=== PATIENT | female | born 1985 | race Asian ===

== ENCOUNTER 2019-05-14 18:53 | Outpatient (REF) | payer OTHER, SELFPAY ==
[2019-05-14 18:50] LABS: HCT 41.1 % (36.0-46.0); HGB 13.9 g/dL (12.0-15.5); Mean Corp. HGB Concentration 33.8 g/dL (32.0-36.0); Mean Corpuscular Hemoglobin 30.5 pg (27.0-33.0); Mean Corpuscular Volume 90.1 fL (80-95); Mean Platelet Volume 10.5 fL (8.0-11.0); Platelet Count 296 x1000/uL (130-400); RBC 4.56 m/cumm (4.00-5.20); RBC Distribution Width 12.6 % (11.7-14.6); White Blood Cell Count 6.76 k/cumm (4.4-10.8)
[2019-05-14 18:59] LABS: Anion Gap 7.9 mmol/L (3-11); BUN 14 mg/dL (7-18); CO2 29.1 mmol/L (21.0-32.0); CREATININE 0.75 mg/dL (0.55-1.02); Chloride 106 mmol/L (98-107); Glucose 92 mg/dL (74-106); Potassium 4.1 mmol/L (3.5-5.1); Sodium 143 mmol/L (136-145)
== END 2019-05-14 19:13 ==
LOC: NCHCN 18:53
PROVIDERS: PCP Nurse Practitioner Family; Visit Provider Nurse Practitioner Family
DX: Z00.00 Encounter for general adult medical examination without abnormal findings (principal); Q61.3 Polycystic kidney, unspecified
CPT/HCPCS: 80048; 85027

== ENCOUNTER 2023-08-18 18:07 | Emergency (ER) | payer OTHER, SELFPAY ==
[2023-08-18 18:10] VITALS: BP 113/60; PULSE 71; RESP 14; TEMP 37.2; O2SAT 95
--- NOTE | 2023-08-18 18:53 | DI.RAD_ITS ---
Exam(s) XR FINGER LT LITTLE EXAM: XR FINGER LT LITTLE EXAM DATE/TIME: CLINICAL HISTORY: pain, deformity. TECHNIQUE: 2D digital imaging was performed of the left finger. Four views were obtained. PA/AP, o blique, and lateral views were obtained. COMPARISON: None. FINDINGS: BONES: No acute fracture is present. No bony destructive lesion is seen. JOINTS: No dislocation is present. There is over extension of the PIP joint of the left little finge r raising the question of flexor tendon injury injury. SOFT TISSUE: Normal. IMPRESSION: 1. No acute fracture. 2. Over extension of the PIP joint of the left little finger raising the question of flexor tendon in jury. DATA REPOSITORY: RADIATION DOSE DELIVERED:
--- NOTE | 2023-08-18 19:12 | DI.VRAD_ITS ---
PROCEDURE INFORMATION: Exam: XR Left Finger(s) Exam date and time: 08/18/2023 6:44 PM Age: 38 years old Clinical indication: Other: Pain, deformity TECHNIQUE: Imaging protocol: Radiologic exam of the left fingers. Views: Minimum 2 views. COMPARISON: No relevant prior studies available. FINDINGS: Bones/joints: No acute fracture. No dislocation. Subluxation and abnormal extension are observed at the 5th finger proximal interphalangeal joint. Soft tissues: Soft tissue swelling is noted in the 5th finger. No abnormal soft tissue gas. IMPRESSION: 1. No fracture. No dislocation. 2. Tendon and/or ligamentous injuries questioned at the 5th PIP joint. Dictated and Authenticated by: Adan Costello MD. Ordering:NADIYA Varner MD
[2023-08-18 19:56] VITALS: BP 113/60; PULSE 71; RESP 14; TEMP 37.2; O2SAT 95
--- NOTE | 2023-08-18 23:03 | W.ED.GENAD ---
Discharge Plan Disposition Patient Disposition: Home Discharge Details Clinical Impression: Injury of flexor tendon of hand Primary Care Provider: None,None ED Provider: Gardenia Lakhani Home Meds and New Rx's Prescriptions: Continued loratadine [Claritin] 10 mg tablet 10 mg PO DAILY PRN (Reason: allergy symptoms) multivitamin Tablet 1 tab PO DAILY Discharge Instructions Additional Instructions: Ibuprofen and Tylenol as needed for pain Keep your splint in place Follow-up with orthopedics Return earlier with new or worsening complaints Referrals: Robert Del Castillo MD [ [facility] STAFF PHYSICIAN] - HPI General Date/Time Provider Initiated Documentation: 08/18/23 18:15. HPI Narrative: This 38-year-old female presents with injury to her left fifth digit on hand, football hit the volar aspect of fifth digits on left hand and she thinks it dislocated, she attempted to reduce it but now is in terrible pain. She denies any additional injuries or chance of . Related Data Home Medications Medication Instructions Recorded Confirmed loratadine 10 mg tablet (Claritin) 10 mg PO DAILY PRN allergy symptoms 05/28/19 08/18/23 multivitamin 1 tab PO DAILY 05/28/19 08/18/23 Allergies Allergy/AdvReac Type Severity Reaction Status Date / Time No Known Allergies Allergy Verified 08/18/23 18:18 General Stated Complaint: Orthopedic COLLEEN: 4 Course Vital Signs Vital signs: Vital Signs Temperature 37.2 C 08/18/23 18:10 Pulse 71 08/18/23 18:10 Respiratory Rate 14 08/18/23 18:10 Blood Pressure 113/60 08/18/23 18:10 Pulse Oximetry 95 08/18/23 18:10 Temperature 37.2 C 08/18/23 19:56 Temperature Source Oral 08/18/23 18:10 Pulse 71 08/18/23 19:56 Respiratory Rate 14 08/18/23 19:56 Respiratory Effort Normal, Non-Labored 08/18/23 18:14 Blood Pressure 113/60 08/18/23 19:56 Blood Pressure Position Sitting 08/18/23 18:10 Pulse Oximetry 95 08/18/23 19:56 Oxygen Delivery Method Room Air 08/18/23 18:10 Oxygen Flow Rate 0 08/18/23 18:10 Pain Level 2 08/18/23 19:56 Medical Decision Making 38-year-old female in acute distress, deformed left fifth digit, 1% lidocaine was injected, 3 cc used to perform a digital block for discomfort, patient had good analgesia without any obvious abnormality Patient is neurovascularly intact pre and postprocedure, initially she was unable to flex DIP joint, however after manipulation she is now able to flex her DIP joint but she remains quite tender, she is placed in a splint for comfort and will be referred to orthopedics, I did discuss with Dr. Del Castillo who called the emergency department and the concern is for volar plate fracture and less likely a flexor tendon injury which was my initial thought She will be placed on the list for follow-up She remains neurovascularly intact Return precautions reviewed and patient expressed understanding, no evidence of open fracture Quality:SDOH Health Related Social Needs: No Data to Display PFSH All Active Problems (Updated 08/18/23 @ 19:31 by ANGELICA Cuevas) Injury of flexor tendon of hand (Acute) Polycystic kidney disease (Acute) Patient desires (Acute) Medical History (Updated 08/18/23 @ 19:31 by ANGELICA Cuevas) Encounter for preventive care Hemorrhoids Family History (Updated 05/28/19 @ 11:00 by Gloria Palafox RN) Mother Kidney disease Diabetes Maternal Grandmother Kidney disease Social History (Updated 05/28/19 @ 10:57 by Gloria Palafox RN) Smoking/Tobacco Use Status: Former Tobacco Use Smoking risk assessment performed?: Yes PAWSS Have you Been Recently Intoxicated or Drunk Within the Last 30 days?: No Have you Ever Experienced Previous Episodes of Alcohol Withdrawal?: No Have you ever Experienced Withdrawal Seizures?: No Have you ever Experienced Delirium Tremens(DT)s?: No Have you ever undergone Alcohol Rehabilitation Treatment (i.e, inpt ot outpatient treatment programs)?: No Have you ever Experienced Blackouts?: No Have you ever Combined Alcohol with other Downers within the last 90 days?: No Have you ever Combined Alcohol with any other Substance of Abuse during the last 90 days?: No Positive Blood Alcohol level on Presentation? [PCS.BAL]: No Evidence of Increased Autonomic Activity (i.e. HR>120, tremor, sweating, agitation, nausea)?: No Result: 0
== END 2023-08-18 19:56 | disposition home or self-care (01) ==
LOC: ER 20:06
PROVIDERS: Emergency Provider Physician Assistant
DX: S66.197A Other injury of flexor muscle, fascia and tendon of left little finger at wrist and hand level, initial encounter (principal); W21.01XA Struck by football, initial encounter
CPT/HCPCS: 29130; 99283; 73140

== ENCOUNTER 2024-03-06 01:36 | Outpatient (CLI) | payer OTHER, SELFPAY ==
[2024-03-06 12:14] LABS: Panorama Kit Sent via Fed Ex
[2024-03-06 12:26] LABS: Abs Immature Grans 0.03 10^3/uL (0.0-0.06); Absolute Basophil Count 0.04 10^3/uL (0.0-0.2); Absolute Eosinophil Count 0.03 10^3/uL (0.0-0.7); Absolute Lymphocyte Count 1.84 10^3/uL (1.2-3.4); Absolute Monocyte Count 0.46 10^3/uL (0.1-0.8); Absolute Neutrophil Count 5.86 10^3/uL (1.2-6.7); Basophils % 0.5 %; Eosinophils % 0.4 %; HCT 40.6 % (36.0-46.0); HGB 13.9 g/dL (11.2-15.7); Immature Grans % 0.4 %; Lymphocytes % 22.3 %; MCH 30.9 pg (27.0-33.0); MCHC 34.2 % (32.0-36.0); MCV 90 fL (80-95); MPV 10.1 fL (8.0-11.0); Monocytes % 5.6 %; Neutrophils % 70.8 %; Platelet Count 255 10^3/uL (130-400); RDW 11.8 % (11.7-14.6); RDW-SD 38.7 fL; WBC 8.26 10^3/uL (4.4-10.8)
[2024-03-06 13:18] LABS: ALT 28 U/L (14-59); AST 17 U/L (15-37); Albumin 3.4 g/dL (3.4-5.0); Alkaline Phosphatase 44 U/L (46-116); Anion Gap 7.4 mmol/L (3-11); BUN 16 mg/dL (7-18); Bilirubin, Total 0.44 mg/dL (0.2-1.0); CO2 26.6 mmol/L (21.0-32.0); CREATININE 0.6 mg/dL (0.55-1.02); Chloride 105 mmol/L (98-107); Estimated GFR 119.23 (mL/min/1.73m2); Glucose 87 mg/dL (74-106); Potassium 4.6 mmol/L (3.5-5.1); Sodium 139 mmol/L (136-145); Total Protein 6.8 g/dL (6.4-8.2)
[2024-03-07 09:37] LABS: Rubella IgG Ab (UVM) Positive (See Note); Varicella IgG Antibody Positive (See Note)
[2024-03-07 09:49] LABS: HIV-1/2 Ag & Ab Screen Negative (Negative)
[2024-03-07 09:54] LABS: Hepatitis C Ab w Rflx HCV PCR Negative (Negative)
[2024-03-07 14:49] LABS: Hepatitis B Surface Ag Negative (Negative)
[2024-03-08 19:19] LABS: Syphilis IgG w/Reflex Nonreactive (Nonreactive)
== END 2024-03-06 01:37 | disposition home or self-care (01) ==
LOC: LBO 01:37
PROVIDERS: Visit Provider Advanced Practice Midwife
DX: Z34.91 Encounter for supervision of normal pregnancy, unspecified, first trimester (principal); O09.511 Supervision of elderly primigravida, first trimester
CPT/HCPCS: 36415; 80053; 86787; 86803; 86850; 86900; 86901; 87340; 87389; 85025; 86762; 86780

== ENCOUNTER 2024-03-06 11:25 | Outpatient (REF) | payer OTHER, SELFPAY ==
--- NOTE | 2024-03-06 11:30 | PAPFT_PTH ---
PATIENT: Jovany Ch LOC: [facility] U#:[id number] AGE/SX: 38/F ROOM: RE03/06/[address]: Martha Purdy : 1985 BED: DIS: 03/06/2024 SPEC #: [id number] RECD: 03/06/24 12:51 STATUS: RIK REQ #: [id number] LYNN: 03/06/24 11:[address]: Martha Purdy DEPT: [facility] Cytology RECD BY: [place] ENTERED: 03/06/24 12:51 SP TYPE: PAPFT OT DR: Unknown,Unknown Tissues: 1 - CX/ENDOCX FOR PAP SMEARS Procedures: PAP THIN PREP/[facility] Screening HPV DNA PROBE Comments: [id number] (HPV 16 & 18/45)
[2024-03-07 12:40] LABS: Chlamydia Result Negative (Negative); GC Result Negative (Negative)
== END 2024-03-06 11:26 | disposition home or self-care (01) ==
LOC: LBN 11:25
PROVIDERS: Visit Provider Advanced Practice Midwife
DX: Z34.91 Encounter for supervision of normal pregnancy, unspecified, first trimester (principal)
CPT/HCPCS: 87491; 87591; 88142; 87086; 87480; 87510; 87624; 87660

== ENCOUNTER 2024-05-28 02:36 | Outpatient (CLI) | payer OTHER, SELFPAY ==
[2024-05-28 10:24] LABS: HGB 13.4 g/dL (11.2-15.7); MCHC 32.7 % (32.0-36.0); MCV 92 fL (80-95); MPV 10.3 fL (8.0-11.0); Platelet Count 201 10^3/uL (130-400); RBC 4.46 10^6/uL (3.93-5.22); RDW 12.9 % (11.7-14.6); RDW-SD 43.2 fL
[2024-05-28 10:38] LABS: Glucose,1 Hr (Glucola) 72 mg/dL (80-140)
== END 2024-05-28 02:37 | disposition home or self-care (01) ==
LOC: LBO 02:36
PROVIDERS: Visit Provider Obstetrics & Gynecology
DX: Z34.93 Encounter for supervision of normal pregnancy, unspecified, third trimester (principal)
CPT/HCPCS: 36415; 82950; 85027

== ENCOUNTER 2024-06-10 10:40 | Outpatient (REF) | payer OTHER, SELFPAY ==
[2024-06-10 11:39] LABS: COMMENT (LAB VIEW ONLY) 74.96 mg/dL; PROTEIN 14.1 mg/dL; Prot/Crea Ur Ratio 0.18
== END 2024-06-10 10:41 | disposition home or self-care (01) ==
LOC: LBN 10:40
PROVIDERS: Advanced Practice Midwife; Visit Provider Obstetrics & Gynecology
DX: Q61.3 Polycystic kidney, unspecified (principal); Z34.93 Encounter for supervision of normal pregnancy, unspecified, third trimester; Z3A.28 28 weeks gestation of pregnancy
CPT/HCPCS: 82565; 84156

== ENCOUNTER 2024-07-24 02:17 | Outpatient (CLI) | payer OTHER, SELFPAY ==
--- NOTE | 2024-07-24 06:15 | DI.US_ITS ---
Exam(s) US OB MONICA WEIGHT EXAM: US OB MONICA WEIGHT CLINICAL HISTORY: mom with renal disease,f/u growth,ama,Q61.3. TECHNIQUE: Transabdominal obstetrical ultrasound performed. COMPARISON: US POCUS EXAM from 02/21/2024 FINDINGS:: Number of fetuses: 1 position: CEPHALIC Placental location: ANTERIOR, grade 2. No evidence of previa. BIOMETRIC DATA: BPD: 8.94 cm, 36 +1 weeks HC: 32.35 cm, 36+ 4 weeks AC: 31.71 cm, 35+4 weeks FL: 6.44 cm, 33+2 weeks EFW: 2608.38 g, 59.3 % Composite Age: 30 5+3 weeks TIM: 25 August 2024 Heart Rate: 162 bpm Amniotic fluid index: 13.79 cm. Visually, amount of fluid is within normal limits. IMPRESSION: size and weight are within the expected range. DATA REPOSITORY:
== END 2024-07-24 02:37 ==
LOC: DI 02:17
PROVIDERS: Visit Provider Obstetrics & Gynecology Gynecology
DX: O09.523 Supervision of elderly multigravida, third trimester (principal); Q61.3 Polycystic kidney, unspecified; Z3A.36 36 weeks gestation of pregnancy
CPT/HCPCS: 76816

== ENCOUNTER 2024-08-12 09:35 | Outpatient (REF) | payer OTHER, SELFPAY | END 2024-08-12 09:36 | disposition home or self-care (01) | LOC: LBN 09:35 | PROVIDERS: Visit Provider Obstetrics & Gynecology | DX: Z34.93 Encounter for supervision of normal pregnancy, unspecified, third trimester (principal) | CPT/HCPCS: 87081 ==

== ENCOUNTER 2024-08-20 10:22 | Outpatient (CLI) | payer OTHER, SELFPAY ==
[2024-08-20 10:36] VITALS: BP 119/84; PULSE 86
[2024-08-20 10:43] VITALS: BP 119/84; PULSE 86; TEMP 37
[2024-08-20 10:53] LABS: HCT 39.1 % (36.0-46.0); HGB 13.2 g/dL (11.2-15.7); MCH 30.1 pg (27.0-33.0); MCHC 33.8 % (32.0-36.0); MCV 89 fL (80-95); MPV 11.8 fL (8.0-11.0); Platelet Count 172 10^3/uL (130-400); RBC 4.39 10^6/uL (3.93-5.22); RDW 12.9 % (11.7-14.6); RDW-SD 41.8 fL; WBC 9.25 10^3/uL (4.4-10.8)
[2024-08-20 11:09] LABS: ALT 16 U/L (14-59); AST 18 U/L (15-37); Albumin 2.7 g/dL (3.4-5.0); Alkaline Phosphatase 106 U/L (46-116); Anion Gap 7.7 mmol/L (3-11); BUN 15 mg/dL (7-18); Bilirubin, Total 0.4 mg/dL (0.2-1.0); CO2 25.3 mmol/L (21.0-32.0); CREATININE 0.7 mg/dL (0.55-1.02); Calcium 8.9 mg/dL (8.5-10.1); Chloride 105 mmol/L (98-107); Estimated GFR 114.16 (mL/min/1.73m2); Glucose 108 mg/dL (74-106); Potassium 3.8 mmol/L (3.5-5.1); Sodium 138 mmol/L (136-145); Total Protein 6.4 g/dL (6.4-8.2)
[2024-08-20 11:09] LABS: COMMENT (LAB VIEW ONLY) 20.91 mg/dL; PROTEIN < 6.0 mg/dL
[2024-08-20 12:26] VITALS: BP 118/81; PULSE 72
[2024-08-20 12:41] VITALS: BP 115/74; PULSE 79
== END 2024-08-20 13:10 | disposition other institution (70) ==
LOC: BCD 10:25 → OBS 10:27
PROVIDERS: Visit Provider Obstetrics & Gynecology
DX: O99.891 Other specified diseases and conditions complicating pregnancy (principal); R03.0 Elevated blood-pressure reading, without diagnosis of hypertension; Z3A.39 39 weeks gestation of pregnancy
CPT/HCPCS: 36415; 80053; 85027; 59025; 82565; 84156

== ENCOUNTER 2024-08-20 15:07 | Outpatient (CLI) | payer OTHER, SELFPAY ==
--- NOTE | 2024-08-20 13:00 | DI.US_ITS ---
Exam(s) US OB MONICA WEIGHT EXAM: US OB MONICA WEIGHT CLINICAL HISTORY: EFW for gHTN at term,O13.9. TECHNIQUE: Transabdominal obstetrical ultrasound performed. COMPARISON: US US OB MONICA WEIGHT from 07/24/2024 FINDINGS:: Number of fetuses: 1 position: CEPHALIC Placental location: ANTERIOR No evidence of previa. BIOMETRIC DATA: BPD: 9.11cm, 37weeks HC: 33.95cm, 39weeks AC: 33.91cm, 37weeks 6days FL: 7.38cm, 37weeks 5days EFW: 3,320.76g, 7lb 4.87oz, 55.3% Composite Age: 37weeks 6days TIM: 09/04/2024 Heart Rate: 155bpm Amniotic fluid index: 21.38cm. Visually, amount of fluid is within normal limits. Heart Rate: 155bpm IMPRESSION: size and weight are within the expected range. DATA REPOSITORY:
--- NOTE | 2024-08-20 16:33 | PGE_ITS ---
Date of Service Date of service: 08/20/24 Time of Service: 16:33 Assessment and Plan Assessment and plan (1) Elevated blood pressure affecting in third trimester, antepartum: Status: Acute Assessment and plan: 9-year-old -0-0-1 (history of x 1) at 40 and 1 as dated by LMP equal to 12-week ultrasound. No history of chronic hypertension. Denies any s igns or symptoms of preeclampsia. Serial blood pressures in triage are all within normal limits, including a manual cuff. (110s to 120s over 70s to 80s). NST is reactive and reassuring. Growth ultrasound performed today finds an MONICA of 21, EFW in the 55th percentile, and cephalic presentation. We discussed the potential for developing gestational hypertension, albeit thorough evaluation within triage does not find evidence of this at this time. We reviewed signs and symptoms of preeclampsia and discussed repeating her blood pressure in 2 days. She was encouraged to have a low threshold for coming back to triage for further evaluation if any concerning signs or symptoms arise. All questions were answered to the patient satisfaction. Subjective Subjective Interval history since last seen: 39-year-old -0-0-1 (history of x 1) at 40 and 1 as dated by LMP equal to 12-week ultrasound sent over from clinic for assessment of potential gestational hypertension. Patient is noted to have a blood pressure of 120/90 in late July; she was again noted to have blood pressures in the 130s over 90s during her visit today. She denies any signs or symptoms of preeclampsia and also denies any history of blood pressure issues outside of . Of note, she has a history of section for breech presentation, and strongly desires a trial of labor in her current . Exam Const General: cooperative and healthy appearing Nutritional Appearance: average body habitus Orientation: alert and awake HENWV Head: normal to inspection Resp Effort & Inspection: normal respiratory effort and able to speak in complete sentences GI Other: Gravid, nontender Other: SVE closed/thick/high/medium/posterior Time Spent with Patient Time Spent with Patient: >50 minutes Time was spent: preparing to see the patient(eg.review tests), obtaining and/or reviewing separately otained hiistory, ordering medications,tests, procedures, indepentently interpreting results, counseling the patient and care coordination
== END 2024-08-20 15:27 ==
LOC: DI 15:07
PROVIDERS: Visit Provider Obstetrics & Gynecology
DX: O13.3 Gestational [pregnancy-induced] hypertension without significant proteinuria, third trimester (principal); Z3A.37 37 weeks gestation of pregnancy
CPT/HCPCS: 76816

== ENCOUNTER 2024-08-23 16:36 | Outpatient (CLI) | payer OTHER, SELFPAY ==
[2024-08-23 16:42] VITALS: BP 120/80; PULSE 78
[2024-08-23 16:44] VITALS: BP 120/80; PULSE 78; TEMP 36.8
--- NOTE | 2024-08-23 17:23 | W.OBNST ---
Date of service: 08/23/24 Time of Service: 17:23 NST Evaluation Reason for NST Reasons for Nonstress Test: GESTATIONAL HYPERTENSION Reason for NST Other: BP Check, AMA Gestational Age Gestational Age in Weeks and Days: 38 Weeks and 4Days Test and Monitor Explained Test/Monitor Explained: Test Explained, Monitor Explained and Patient Verbalized Understanding Vital Signs Blood Pressure: 120/80 Pulse: 78 Temperature: 98.2 F NST Information Date on Monitor: 08/23/24 Time on Monitor: 16:27 Date off Monitor: 08/23/24 Time off Monitor: 16:52 Total Time on Monitor: 25 NST Interventions: PO Hydration Contraction Frequency: Occasional NST Evaluation Patient States Movement: Present FHR Baseline: 145 Variability: Moderate 6-25 bpm Accelerations: 15x15 Decelerations: None NST Results: Reactive Note Ultrasound Done: N/A. NST Note Note: Patient seen on the center for blood pressure check and nonstress test. She has an appropriate, reactive, category 1 heart rate tracing with normal blood pressure. She has no other symptomatology. She does have a labor induction scheduled for at [facility]. She will be seen twice weekly for surveillance. Next NST will be Monday08/27/24 NST Reviewed and Verified by: Ratna Brunson
[2024-08-23 17:24] VITALS: BP 120/80; PULSE 78; TEMP 36.8
== END 2024-08-23 17:00 ==
LOC: BCD 16:38 → OBS 16:39
PROVIDERS: Visit Provider Obstetrics & Gynecology
DX: O13.3 Gestational [pregnancy-induced] hypertension without significant proteinuria, third trimester (principal); Z3A.38 38 weeks gestation of pregnancy
CPT/HCPCS: 59025

== ENCOUNTER 2024-08-27 07:36 | Outpatient (CLI) | payer OTHER, SELFPAY ==
[2024-08-27 14:52] VITALS: BP 117/83; PULSE 95
[2024-08-27 14:56] VITALS: BP 117/83; PULSE 95; TEMP 36.2
--- NOTE | 2024-08-27 16:06 | W.OBNST ---
Date of service: 08/27/24 Time of Service: 16:07 NST Evaluation Reason for NST Reasons for Nonstress Test: ADVANCED MATERNAL AGE Gestational Age Gestational Age in Weeks and Days: 39 Weeks and 1Days Test and Monitor Explained Test/Monitor Explained: Test Explained, Monitor Explained and Patient Verbalized Understanding Vital Signs Blood Pressure: 117/83 Pulse: 95 Temperature: 97.1 F Urine Results Urine Protein: Negative Urine Ketones: Negative Urine Glucose: Negative Urine Blood: Negative NST Information Date on Monitor: 08/27/24 Time on Monitor: 14:49 Date off Monitor: 08/27/24 Time off Monitor: 15:09 Total Time on Monitor: 20 NST Interventions: Notify Provider Contraction Frequency: Occasional NST Evaluation Patient States Movement: Present FHR Baseline: 145 Variability: Moderate 6-25 bpm Accelerations: 15x15 Decelerations: None NST Results: Reactive Note Ultrasound Done: N/A. NST Note Note: Category 1 reactive nonstress test. Patient scheduled for labor induction at [facility] 08/28/2024 NST Reviewed and Verified by: Ratna Brunson
[2024-08-27 16:07] VITALS: BP 117/83; PULSE 95; TEMP 36.2
== END 2024-08-27 15:11 ==
LOC: BCD 07:36 → OBS 14:48
PROVIDERS: Visit Provider Obstetrics & Gynecology
DX: O09.523 Supervision of elderly multigravida, third trimester (principal); Z3A.39 39 weeks gestation of pregnancy
CPT/HCPCS: 59025